=== PATIENT | male | born 1950 | race Hispanic/Latino ===

== ENCOUNTER → 2017-11-11 | Day surgery (SDC) | payer MEDICARE ==
[2017-11-04 15:11] LABS: BASOPHILS % 0.5 % (0.0-1.0); EOSINOPHILS # (AUTO) 0.4 (0.0-0.4); EOSINOPHILS % 5.2 % (0.0-6.0); HEMATOCRIT 37.8 % (38.2-49.6); HEMOGLOBIN 12.5 g/dL (14.0-18.0); LYMPHOCYTES % 25.3 % (18.0-39.1); MEAN CORPUSCULAR HEMOGLOBIN 30.2 pg (28-32); MEAN CORPUSCULAR HGB CONC 33.1 g/dL (31-35); MEAN CORPUSCULAR VOLUME 91.3 fL (81-99); MONOCYTES # (AUTO) 0.7 (0.2-0.8); MONOCYTES % 8.4 % (4.4-11.3); NEUTROPHILS # (AUTO) 4.7 (2.1-6.9); NEUTROPHILS % 60.3 % (38.7-80.0); PLATELET COUNT 200 x10e3/uL (140-360); RED BLOOD COUNT 4.14 x10e6/uL (4.3-5.7); RED CELL DISTRIBUTION WIDTH 13.5 % (11.7-14.4)
[2017-11-04 15:26] LABS: ANION GAP 12.2 mmol/L (8-16); CALCIUM 9.2 mg/dL (8.4-10.2); CREATININE, SERUM 1.37 mg/dL (0.72-1.25); POTASSIUM 4.2 mmol/L (3.5-5.1)
[~2017-11-11] MED LIST: ATORVASTATIN CA20 MG PO; BALANCED SALT SOLN (OPTH) 15 ML BTL IO ONE; FENTANYL CITRATE/PF 100MCG/2 ML INJ ONE; GLIMEPIRIDE2 MG PO; HYDROCHLOROTHIA25 MG PO; LIDOCAINE HCL-PF 4% 40 MG/1 ML 5ML AMP ONE; LISINOPRIL10 MG PO; METOPROLOL TART50 MG PO; MIDAZOLAM HCL 2 MG/2 ML VIAL ONE; NOVOLOG100 UNITS1 SQ; TRESIBA PO
== END | disposition home or self-care (01) ==
LOC: OR 08:05
PROVIDERS: ATTEND Ophthalmology
DX: H11.052 Peripheral pterygium, progressive, left eye (principal); E11.9 Type 2 diabetes mellitus without complications; I10 Essential (primary) hypertension; R00.1 Bradycardia, unspecified; I44.0 Atrioventricular block, first degree; Z01.810 Encounter for preprocedural cardiovascular examination; Z01.812 Encounter for preprocedural laboratory examination; Z79.82 Long term (current) use of aspirin; Z79.4 Long term (current) use of insulin
CPT/HCPCS: 36415; 65426; 80048; 85025; 88304; 93005; J2250